=== PATIENT | male | born 1965 | race Caucasian/White ===

== ENCOUNTER 2020-08-04 01:11 | Emergency (ER) | payer SELFPAY ==
[2020-08-04 03:33] VITALS: BP 121/67; PULSE 65; RESP 18; TEMP 36.7; O2SAT 97; BMI 30.1
--- NOTE | 2020-08-04 03:38 | XR_ITS ---
EXAMINATION: XR KNEE, LEFT CLINICAL INFORMATION: Twisted leg injury. Pain to the knee. COMPARISON: None TECHNIQUE: Four views of the left knee. FINDINGS: No fracture or subluxation. Compartmental joint spaces are maintained. No joint effusion. Minimal vascular calcification noted. XR/XR knee LT 4V IMPRESSION: No fracture or malalignment. No joint effusion.
--- NOTE | 2020-08-04 03:53 | PC.NURSE ---
Patient taken to xray for imaging
--- NOTE | 2020-08-04 04:47 | ED_ITS ---
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 He denies any knee swelling or redness, fevers or chills. Related Data Previous Rx's Medication Instructions Recorded ketorolac 10 mg PO TID PRN 5 Days #20 tab 08/04/20 Allergies Allergy/AdvReac Type Severity Reaction Status Date / Time Penicillins Allergy Unknown Unknown Verified 08/04/20 03:36 Review of Systems Review of Systems: Pertinent positives and negatives as stated in HPI 10 point review of systems otherwise negative. PMFSH Past Medical History Source: nursing notes reviewed Social History Social History Alcohol intake: never Smoking Status: Current every day smoker Smoked in Last 30 Days: Yes Use of substances other than those prescribed or required for medical reasons: No Advance Directives: No Physical Exam Vital Signs: Vital Signs: Last Vital Signs Temp 98.0 F 08/04/20 03:33 Pulse 65 08/04/20 03:33 Resp 18 08/04/20 03:33 BP 121/67 08/04/20 03:33 Pulse Ox 97 08/04/20 03:33 Body Mass Index 30.1 VITAL SIGNS: Reviewed. GENERAL: Well developed, well nourished, in no acute distress. HEAD: Normocephalic/atraumatic, OROPHARYNX: no oral lesions noted, posterior pharynx clear and non-erythematous without noted tonsillar enlargement/erythema/exudates NECK: Supple, no adenopathy LUNGS: Normal breath sounds. No adventitious sounds or accessory muscle use. SpO2<97> CARDIOVASCULAR: Regular rate and rhythm without noted murmurs, no JVD or lower extremity edema. ABDOMEN: Soft, non-tender, non-distended with bowel sounds. No rigidity. No guarding. No palpable masses or hernias noted EXTREMITIES: Left knee is without erythema, induration, warmth, or swelling and although there is discomfort he is able to range of motion. Palpable DP/PT distal to the left knee and capillary refill less than 3 seconds. NEUROLOGIC: Alert and oriented x 4. Course Course Course Narrative: This is a 54-year-old male with history and clinical pr esentation most consistent with left knee pain of unclear etiology, however radiographic investigation is negative for fracture or acute dislocation as well as no evidence of effusion. Suspect that this may be exacerbation of underlying arthritis versus less likely meniscal injury. Patient received combination of analgesics and had significant improvement on re-evaluation. He was discharged home in stable condition with an Chaparro wrap instructed to continue with the analgesics and to follow up with either a Sports Medicine or orthopedist. Discharge Plan Discharge Clinical Impression: Knee joint pain Qualifiers: Laterality: left Qualified Code(s): M25.562 - Pain in left knee Patient Disposition: Home, Self-Care Instructions: Knee Pain (ED) Additional Instructions: 1. Tylenol 1000 mg, orally, every 6 hours as needed for pain control. Do not exceed 4000 mg within 24 hours. 2. Apply ice for 15-20 minutes, 3 to 4 times a day and minimize the bending for 2-3 days. 3. Please follow up with either sports medicine or orthopedics for further evaluation of your left knee pain. Please do not hesitate to return to this emergency department should she develop any worsening of your symptoms. Prescriptions: New ketorolac 10 mg tablet 10 mg PO TID PRN (Reason: pain) 5 Days Qty: 20 RF: 0 Referrals: Physician,None [Primary Care Provider] - 2 days (Re-evaluation outpatient treatment of left knee pain.) Stand Alone Forms: Work/School Release Interventions: ED Discharge Assessment Last Done: 08/04/20 05:04 Discharge Date/Time: 08/04/20 05:54
== END 2020-08-04 05:54 | disposition home or self-care (01) ==
PROVIDERS: Emergency Provider Student in an Organized Health Care Education/Training Program
DX: Z04.2 Encounter for examination and observation following work accident (principal); M25.562 Pain in left knee
CPT/HCPCS: 73564; 96372; 99284

== ENCOUNTER 2025-07-20 10:18 | Emergency (ER) | payer MEDICAID, SELFPAY ==
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
--- OUTSIDE RECORDS SUMMARY | 2025-04-12 16:00 | XMS_ITS ---
Author Organization [facility] Address [address] [place] [phone] Care Team Providers Care Freight Brake Operator Name Role Phone Angeles Chambers Primary Care Provider [phone] Migration, Provider Unavailable Unavailable Allergies Allergen (clinical drug ingredient) Drug/Non Drug Allergy documented on EMR Reaction Allergy Type Onset Date Status penicillin G Penicillin G Potassium anaphylaxis Drug Allergy Active REASON FOR VISIT [facility] To [facility] Conversion Encounter Medications Medication SIG (Take, Route, Frequency, Duration) Notes Start Date End Date Status FLUoxetine HCl 20 MG 1 cap(s) orally once a day for 30 days Please deliver to [address] Active hydrOXYzine HCl 25 MG 1 tab(s) orally 1-2 caps by mouth twice a day for 30 days Please deliver to [address] Active Clindamycin HCl 300 MG 1 cap(s) orally every 6 hours for 10 day(s) 04/21/2022 Not-Taking FLUoxetine HCl 10 MG 1 cap(s) orally once a day for 30 days Please deliver to [address] 12/10/2024 Active Encounters Encounter Location Date Provider Diagnosis [address] [address] 04/12/2025 Provider Migration Plan Of Treatment No Information Progress Notes * Audi NOOFREDOB:[birth year] (59 yo M)Acc No.[id number]:04/12/2025 Patient: Audi FELIPE Provider: :1965 A ge:59 Y S ex:Male Date:04/12/2025 Address:verify address, [id number] Pcp:Angeles Chambers Subjective: * Chief Complaints: * 1 . Multum To Med[facility]pan Conversion Encounter. * Medical History: * Medications: T aking FLUoxetine HCl 20 MG Capsule 1 cap(s) orally once a day , Notes to Pharmacist: Please deliver to [facility] [address] [place] [address], Taking hydrOXYzine HCl 25 MG Tablet 1 tab(s) orally 1-2 caps by mouth twice a day , Notes to Pharmacist: Please deliver to [address], Taking FLUoxetine HCl 10 MG Capsule 1 cap(s) orally once a day , Notes to Pharmacist: Please deliver to [address], Not-Taking/PRN Clindamycin HCl 300 MG Capsule 1 cap(s) orally every 6 hours * Allergies: P enicillin G Potassium: anaphylaxis. Objective: * Vitals: Assessment: Plan: * Treatment: * Images: Billing Information: * Visit Code: * Procedure Codes: * Electronic signature of Prov ider Migration on 07/20/2025 at 10:48 AM EST Sign off status: Pending * Provider: Date: 0 04/12/2025 Generated for Mervat monroe/Amanda/Cheriitting on: 1 09/20/2024 10:48 AM EST
--- OUTSIDE RECORDS SUMMARY | 2025-06-12 08:30 | XMS_ITS ---
Author Organization [facility] Address [address] [place] [phone] Care Team Providers Care 911 Emergency Dispatcher Name Role Phone Angeles Chambers Primary Care Provider [phone] Allergies Allergen (clinical drug ingredient) Drug/Non Drug Allergy documented on EMR Reaction Allergy Type Onset Date Status penicillin G Penicillin G Potassium anaphylaxis Drug Allergy Active REASON FOR VISIT Office ; Chronic Care Medications Medication SIG (Take, Route, Frequency, Duration) Notes Start Date End Date Status Clindamycin HCl 300 MG 1 cap(s) orally every 6 hours for 10 day(s) 04/21/2022 Unknown FLUoxetine HCl 10 MG 1 cap(s) orally once a day for 30 days Please deliver to [facility] [address] [place] [address] 12/10/2024 Unknown hydrOXYzine HCl 25 MG 1 tab(s) orally 1-2 caps by mouth twice a day for 30 days Please deliver to [facility] [address] [place] [address] Unknown FLUoxetine HCl 20 MG 1 cap(s) orally once a day for 30 days Please deliver to [address] Unknown Encounters Encounter Location Date Provider Diagnosis [address] [phone] 06/12/2025 Angeles Chambers Encounter for screening for COVID-19 Z11.52 Assessments Encounter Date Diagnosis (ICD Code) Assessment Notes Treatment Notes Treatment Clinical Notes Section Notes 06/12/2025 Encounter for screening for COVID-19 (ICD-10 - [...] you are having concerning symptoms for COVID-19. 06/12/2025 Other Plan Of Treatment Treatment Notes Assessment [...] symptoms for COVID-19. Progress Notes * Audi TENORIODOB:[birth year] (59 yo M)Acc No.[id number]:06/12/2025 Progress Notes Patient: Audi FELIPE Provider: PETE Ness :1965 A ge:59 Y S ex:Male Date:06/12/2025 Address:verify address, [place], [id number] Subjective: * Chief Complaints: * 1 . Office ; Chronic Care. * HPI: G eneral: Symptom Screen: - [...] Denies new skin rashes. * Medical History: * Medications: U nknown FLUoxetine HCl 20 MG Capsule 1 cap(s) orally once a day , Notes to Pharmacist: Please deliver to [facility] [address] [facility] [address], Unknown hydrOXYzine HCl 25 MG Tablet 1 tab(s) orally 1-2 caps by mouth twice a day , Notes to Pharmacist: Please deliver to [facility] [address] [place] [address], Unknown FLUoxetine HCl 10 MG Capsule 1 cap(s) orally once a day , Notes to Pharmacist: Please deliver to [facility] [address] [place] [address], Unknown Clindamycin HCl 300 MG Capsule 1 cap(s) orally every 6 hours * Allergies: P enicillin G Potassium: anaphylaxis. Objective: * Vitals: Assessment: * Assessment: 1. E ncounter for screening for COVID-19 - Z11.52 (Primary) Plan: * Treatment: * Images: Billing Information: * Visit Code: * Procedure Codes: Care Plan Details* * Electronic signature of Kwan Chambers on 07/20/2025 at 10:48 AM EST Sign off status: Pending * Provider: PETE Ness Date: 08/12/2024 Generated for Mervat monroe/Amanda/Dottie on: 09/20/2024 10:48 AM EST
[2025-07-20 10:32] VITALS: BP 109/57; PULSE 72; RESP 18; TEMP 36; BMI 26.5
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
[2025-07-20 10:55] LABS: IDNOW Serial# 58CA691E; Strep A Nucleic Acid Positive (Negative)
--- NOTE | 2025-07-20 11:01 | ED_ITS ---
HPI - General Adult General Chief complaint: General Medical Stated complaint: ? strep throat Time Seen by Provider: 07/20/25 11:01 Source: patient Mode of arrival: ambulatory Limitations: no limitations History of Present Illness ED Provider: Jennifer Jaffe PA-C HPI narrative: Patient is a 59 year old male with no reported medical history presenting to the emergency department today with a sore throat, fever, and body aches. Patient states that over the last 2 days he has felt generally unwell with a fever, sore throat, and body aches. Patient denies any other complaints at this time. Onset (ago): day(s) (2) Relieving factors: none Exacerbating factors: none Associated symptoms: fever/chills Treatments prior to arrival: none Related Data Previous Rx's ?Medication ?Instructions ?Recorded ketorolac 10 mg tablet 10 mg PO TID PRN pain 5 days #20 08/04/20 tabs azithromycin 500 mg tablet 500 mg PO DAILY 5 days #5 t abs 07/20/25 Allergies Allergy/AdvReac Type Severity Reaction Status Date / Time Penicillins Allergy Unknown Unknown Verified 07/20/25 10:37 Review of Systems Constitutional: Constitutional: Reports as per HPI Eyes: Eyes: Reports as per HPI ENT: Reports as per HPI Cardiovascular: Cardiovascular: Reports as per HPI Respiratory: Respiratory: Reports as per HPI Gastrointestinal: Gastrointestinal: Reports as per HPI Genitourinary: Genitourinary: Reports as per HPI Musculoskeletal: Musculoskeletal: Reports as per HPI Integumentary/Breasts: Skin/Breast: Reports as per HPI Neurologic: Reports as per HPI Psychiatric: Psychiatric: Reports as per HPI Endocrine: Endocrine: Reports as per HPI Hematologic/Lymphatic: Hematologic/Lymphatic: Reports as per HPI Allergic/Immunologic: Allergic/Immunologic: Reports as per HPI [facility] Past Medical History Attestation statement: The following information was validated with the patient. Source: old records reviewed and nursing notes reviewed Social History Social History Alcohol intake: never Advance Directives: No Advance Directives Information Provided: No Physical Exam ED Vital Signs: Vital Signs - 24 hr 07/20/25 10:32 Temperature 96.8 F Pulse Rate 72 Respiratory Rate 18 Blood Pressure 109/57 L Oxygen Delivery Method Room Air BMI result Body Mass Index 26.5 Const General: cooperative, no acute distress, alert and awake Nutritional Appearance: well nourished Orientation/consciousness: patient oriented x3 HENMT Head: Yes normal to inspection and Yes atraumatic Ears: hearing grossly normal bilaterally and external ears normal General nose exam: Normal external nose present, no nasal discharge noted and no epistaxis Face and sinus: Yes normal facial exam, No abrasion and No laceration Mouth: Normal oral and palatal mucosa present, no drooling and no muffled voice Eyes General: appearance normal, both eyes and all related structures Periorbital: periorbital findings normal Eyelids: Yes eyelids normal Conjunctivae: conjunctivae normal Pupils: Equal, round and reactive pupils present EOM: EOMs intact bilaterally Neck Neck: Yes normal visual inspection and Yes full ROM Resp Effort & Inspection: normal respiratory effort and able to speak in complete sentences Neuro General: patient oriented x3, moves all extremities and CN's II-XI intact bilaterally Cranial nerves: Yes Equal, round and reactive pupils present Cognition (Neuro): normal cognition Extrem General: Yes normal to inspection, Yes full ROM and Yes capillary refill normal Psych Appearance: grossly normal Mental Status: mental status grossly normal Affect: normal affect Attitude: cooperative Thought process: Normal thought process present Thought content: Normal thought content present Insight: Good insight present (Psych) Medical Decision Making Medical Decision Making MDM Narrative: Patient is a 59 year old male with no reported medical history presenting to the emergency department today with a sore throat, fever, and body aches. Patient's physical exam was as noted in the physical exam portion of this note. Patient's strep test was positive. Patient's COVID-19, Influenza, and RSV testing was negative. I explained my physical exam findings as well as all test results to the patient. I answered all questions asked by the patient. Patient has significant allergy to penicillin, prescribed Azithromycin. I stressed the importance of the patient taking his medication as directed (either prescribed or as the over the counter packaging recommends). I stressed the importance of the patient following up with his primary care provider. I stressed the importance of the patient returning to the emergency department immediately if his symptoms were to worsen or if he were to develop any dizziness, shortness of breath, difficulty breathing, chest pain, blurry vision, loss of vision, nausea, vomiting, abdominal pain, fever, chills, back pain, or any other complaints. Patient verbalized agreement and understanding with this treatment plan and discharge. Differential Diagnosis Differential Diagnoses: The differential diagnosis associated with the presentation includes Strep pharyngitis COVID-19 Influenza RSV Admission/Observation Consideration of admission/observation: Escalation of care including admission/observation considered Patient would have been admitted to the hospital had his work up had any findings where hospital admission was appropriate and his clinical presentation warranted hospital admission. Lab Data [facility] Lab Attestation statement: I reviewed the patient's lab results. My interpretation of these results are in the [facility] Rationale portion of this note. Labs: Lab Results 07/20/25 Range/Units 10:39 Influenza Type A (PCR) NEGATIVE (Negative) Influenza Type B (PCR) NEGATIVE (Negative) RSV RNA Qual (PCR) NEGATIVE (Negative) SARS-CoV-2 RNA (RT-PCR) NEGATIVE (Negative) S. pyogenes GrpA ADAMS Positive A (Negative) Prescription Management I considered prescription management with: Antibiotic (patient prescribed antibiotic for strep pharyngitis) Discharge Plan Discharge Clinical Impression: Strep pharyngitis Patient Disposition: Home, Self-Care Instructions: Strep Throat (DC) Additional Instructions: Your strep test was positive. Take your antibiotic as prescribed. IF you are prescribed home medications and/or you are taking over the counter medications at home - it is very important you continue to do so as prescribed / directed unless told otherwise by a healthcare provider. Follow up with your primary care provider. Do your best to stay well hydrated and rest. Return to the emergency department immediately if your symptoms worsen or if you develop any numbness, tingling, dizziness, shortness of breath, difficulty breathing, chest pain, blurry vision, loss of vision, nausea, vomiting, abdominal pain, fever, chills, back pain, or any other complaints. If you do not have a primary care provider - call any of the below numbers to establish and follow up with a primary care provider. [facility] Primary Care ([place]) [phone] [place] [address], [address] [facility] Primary Care ([address] [place]) [phone], [address] [place], [address] [facility] Primary Care ([address] [place]) [phone] [address], [address] [place], [address] [facility] Primary Care ([place]) [phone] [place] [address], [address] [place], [address] [facility] Family Medicine [phone] [place] [address], [address] Please see the information below about our Patient Portal. If you are not yet enrolled in the [facility] Patient Portal, you will receive an enrollment email invitation following your visit to any [facility] setting. You may also self-enroll in the Patient Portal by visiting our website: [email or web address] The following information is required to access the Patient Portal: - Your [facility] Medical Record Number - Your personal home email address (must match what is in your electronic medical record, Registration staff can assist with this) - Name - Date of Capabilities of the Patient Portal: - Message some providers - View upcoming appointments - Access your health summary, medical history, and visit history - View current conditions and allergies - View procedure and lab results - View your medications, including guidelines, side effects, and precautions - Complete pre-appointment questionnaires requested by your provider - Ready summary reports of your office visits and procedures To access the Patient Portal Mobile [employer], follow these directions: - Search [employer] in the [employer] Store or [employer] Store - Download the Michael - Search for [facility] - Enter your login/password Prescriptions: New azithromycin 500 mg tablet 500 mg PO DAILY 5 Days Qty: 5 0RF No Action ketorolac 10 mg tablet 10 mg PO TID PRN (Reason: pain) 5 Days Qty: 20 0RF Rx Instructions: Patient received IM Toradol in the emergency department. Print Language: Tajik
[2025-07-20 11:23] LABS: Resp Syncy Virus RNA Qual PCR NEGATIVE (Negative); SARS COV2 PCR INHOUSE NEGATIVE (Negative)
[2025-07-20 11:53] VITALS: BP 109/57; PULSE 72; RESP 18; TEMP 36
== END 2025-07-20 11:53 | disposition home or self-care (01) ==
PROVIDERS: Emergency Provider Emergency Medicine Emergency Medical Services
DX: J02.0 Streptococcal pharyngitis (principal); Z03.818 Encounter for observation for suspected exposure to other biological agents ruled out
CPT/HCPCS: 87637; 87651; 99282; 99283